=== PATIENT | female | born 2005 | race Caucasian/White ===

== ENCOUNTER 2024-11-25 21:57 | Emergency (ER) | payer MEDICAID ==
[~2024-11-25] VITALS: Ht 157.5 cm; Wt 50.0 kg
[2024-11-25 22:00] VITALS: BP 132/84; PULSE 92; RESP 14; O2SAT 98
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
[2024-11-25 22:14] VITALS: TEMP 98.4
== END 2024-11-25 22:16 ==
LOC: ER 21:57
DX: Z04.1 Encounter for examination and observation following transport accident (principal); V89.2XXA Person injured in unspecified motor-vehicle accident, traffic, initial encounter; Y93.89 Activity, other specified; Y92.89 Other specified places as the place of occurrence of the external cause; Y99.8 Other external cause status
CPT/HCPCS: 99283